=== PATIENT | female | born 1945 | race Caucasian/White ===

== ENCOUNTER → 2017-06-09 | Day surgery (SDC) | payer OTHER ==
[2017-05-12 11:47] VITALS: Ht 144.8 cm; Wt 52.3 kg
[~2017-06-09] VITALS: Ht 144.8 cm; Wt 52.3 kg
[~2017-06-09] MED LIST: 500ML BSS 0.3ML EPI 1:1000PF IRRIG ONE; ACETAMINOPHEN 325 MG TAB PO PRN; AMVISC PLUS 0.8ML SYRINGE INT OCU ONE; ASPCH81X PO; ATROPINE SULFATE 0.1 MG/ML 5ML SYR IV PRN; BSS FLUSH ONE; CHOL20007 PO; CLB/200 PO; CYAN100020 PO; EpHEDrine SULFATE INJ 50 MG/ML AMP IV PRN; EpINEphrine INJ 1MG/ML AMP 1 MG/ML AMP ONE; HYDR-3419 PO; LACTATED RINGER'S 1000ML 500 ML IV SCH; LIDOCAINE 3.5% OPH GEL PER APPLICATION CHARGE ONE; LIDOCAINE HCL 1% MPF 2 ML VIAL ONE; LOVA20TA4 PO; LTR510 PO; MAGN400T6 PO; MIDAZOLAM HCL 1 MG/ML 2ML VIAL ONE; OCUCOAT 1 ML SOLN IO ONE; POVIDONE-IODINE OP SOLN 30 ML BTL ONE; PROPARACAINE 0.5% OP SOLN PER DROP CHARGE OPL SCH; SIMV20TA2 PO; TOBRAMYCIN/DEXAMETHASONE OPH OINT PER APPLN CHARGE ONE
[2017-06-09] MEDS: PHENYLEPHRINE HCL 2.5% OP SOLN PER DROP CHARGE OPL SCH ×2 (09:52→09:57)
[2017-06-09] MEDS: TROPICAMIDE 1% OP SOLN PER DROP CHARGE OPL SCH ×2 (09:53→09:58)
[2017-06-09] MEDS: CYCLOPENTOLATE HCL 1% OP SOLN PER DROP CHARGE OPL SCH ×2 (09:54→09:59)
[2017-06-09] MEDS: KETOROLAC 0.5% OP SOLN PER DROP CHARGE OPL SCH ×2 (09:55→10:00)
[2017-06-09] MEDS: GATIFLOXACIN OP SOLN PER DROP CHARGE OPL SCH ×2 (09:56→10:00)
--- NOTE | 2017-06-09 10:22 | History & Physical Bridge - [place] ---
H&P Re-Evaluation Bridge Note: I have examined the patient, reviewed the History & Physical and in the interval since the performance of the History & Physical I have noted the following changes of clinical significance: No changes noted
--- NOTE | 2017-06-09 10:55 | Discharge Instructions-SurgCtr ---
Discharge Instructions Date of Service Jun 09, 2017. Visit Reason for Visit: Cataract Left Eye Discharge Discharge Diagnosis / Problem: cataract Discharge Goals Goal(s): Improve function Activity Recommendations Activity Limitations: per Instructions/Follow-up section Anesthesia . Post Anesthesia Instructions: If you have had General Anesthesia or IV Sedation: * Do not drive today. * Resume driving when surgeon permits. * Do not make important decisions or sign legal documents today. * Call surgeon for: 1. Temperature elevations greater than 101 degrees F. 2. Uncontrollable pain. 3. Excessive bleeding. 4. Persistent nausea and vomiting. 5. Medication intolerance (nausea, vomiting or rash). * For nausea and vomiting use only clear liquids such as: tea, soda, bouillon until nausea subsides, then gradually increase diet as tolerated. * If you have any concerns or questions, call your surgeon's office. If physician is unavailable and it is an emergency, call 911 or go to the nearest emergency room. . Instructions / Follow-Up Instructions / Follow-Up ACTIVITY RECOMMENDATIONS: * No strenuous lifting, jogging or running for 4 days * No swimming or yard work for 1 week. * Limited bending is permitted, such as putting on shoes. RETURN TO SCHOOL/WORK: No work until seen by physician in office. MEDICATIONS: Resume previous medications unless instructed otherwise by your surgeon. This includes eye drops for glaucoma. Zymaxid/Gatifloxacin (ochoa cap) - one drop every 2 hours until bedtime Nevanac/Ilevro/Prolensa/Ketorolac (donato cap) - one drop every 4 hours until bedtime Prednisolone/Durezol (white/pink cap, SHAKE WELL) - one drop every 2 hours until bedtime Starting tomorrow - all 3 drops every 4 hours until seen in the office Optive drops - as needed for discomfort SPECIAL CARE INSTRUCTIONS: * Wear eyeshield when sleeping, for four nights. * You may wear your own glasses or sunglasses while awake. * You may read or watch TV * You may shower and wash your face, but be gentle around the eye and pat dry. * Blurry vision and mild irritation are normal. * Call office if pain is more severe or vision becomes dark at . FOLLOW UP VISIT: Follow-up with Dr Moreira tomorrow. Diet Recommendations Home Diet: resume previous diet Procedures Procedures Performed: Left Cataract Phacoemulsification With Intraocular Lens Implant Pending Studies Studies pending at discharge: no Medical Emergencies . Who to Call and When: Medical Emergencies: If at any time you feel your situation is an emergency, please call 911 immediately. . Non-Emergent Contact Non-Emergency issues call your: Fruit Dryer . . "Provider Documentation" section prepared by Owen Moreira. .
--- NOTE | 2017-06-09 10:56 | [facility] Operative Report ---
Operative Report Date of Service Jun 09, 2017. Operative Report 1. PREOPERATIVE DIAGNOSIS: Cataract of the left eye. 2. POSTOPERATIVE DIAGNOSIS: Same. 3. PROCEDURE: Phacoemulsification with intraocular lens implantation of the left eye. SURGEON: Dr. Owen Moreira. ANESTHESIA: Topical Lidocaine gel, 1% Non- Preserved intracameral Lidocaine, and monitored intravenous sedation. INDICATIONS FOR THE PROCEDURE: The patient is a 72 - year-old female with a history of cataract of the left eye causing significant visual impairment. The details of the proposed procedure were explained to the patient who asked appropriate questions and following discussion of all risks, benefits and alternatives agreed to have the procedure done. 4. OPERATION AND FINDINGS: DESCRIPTION OF PROCEDURE: After informed consent was obtained, the patient was brought to the Operating Room at the [facility]. The patient was placed in a supine position and then the left eye was prepped and draped in the usual sterile fashion for intraocular surgery. A drop of topical Lidocaine gel was placed in the operative eye. A wire lid speculum was then placed in the fornices. A corneal paracentesis was then created temporally. The Non-Preserved Lidocaine was then instilled into the anterior chamber. The anterior chamber was then pressurized with viscoelastic. A 2.0 mm clear corneal incision was then created temporally. A cystotome was inserted into the anterior chamber and used to create a tear in the anterior lens capsule. This capsular tear was then used to create a small flap and the flap was dragged in a counterclockwise direction in order to create a continuous curvilinear capsulorrhexis. Hydrodissection was accomplished with balanced salt solution. Phacoemulsification of the lens nucleus was then performed in a standard [id number] technique. The phaco time was 26 seconds with an average power of 8 %. The remaining cortical material was removed using irrigation aspiration. The capsular bag was then filled with viscoelastic. A Bausch & Lomb MI60L +19.0 diopters lens was then loaded into the injector and injected into the capsular bag. The remaining viscoelastic was removed with the irrigation aspiration handpiece. The wound was hydrated and then checked and found to be watertight. The intraocular pressure was checked and found to be adequate. The wire lid speculum was removed and the patient's face was cleaned and dried. TobraDex ointment was placed in the inferior fornix. The patient was discharged to the Recovery Room having tolerated the procedure well. There were no complications. The patient will be seen tomorrow in the office for follow-up. I attest to the content of the Intraoperative Record and any orders documented therein. Any exceptions are noted below.
[2017-06-09 10:57] VITALS: TEMP 37.1
--- NOTE | 2017-06-09 11:03 | Anesthesia Progress Nt - [facility] ---
Anesthesia Post Op Note Date & Time Jun 09, 2017 at 11:03 Vital Signs Pain Intensity: 0 Vital Signs Past 12 Hours Date Time Temp Pulse Resp B/P (MAP) Pulse Ox O2 Delivery O2 Flow Rate FiO2 06/09/17 10:57 37.1 89 16 135/73 (93) 98 Room Air 06/09/17 09:37 36.8 81 20 170/71 (104) 94 Room Air Notes Mental Status: alert / awake / arousable, participated in evaluation Pt Amnestic to Procedure: Yes Nausea / Vomiting: adequately controlled Pain: adequately controlled Airway Patency, RR, SpO2: stable & adequate BP & HR: stable & adequate Hydration State: stable & adequate Anesthetic Complications: no major complications apparent
[2017-06-09 11:13] VITALS: BP 144/76; PULSE 87; O2SAT 97
== END | disposition home or self-care (01) ==
LOC: X.SURG 09:02
PROVIDERS: ATTEND Ophthalmology
DX: H26.9 Unspecified cataract (principal); I10 Essential (primary) hypertension; M19.90 Unspecified osteoarthritis, unspecified site; Z98.1 Arthrodesis status

== ENCOUNTER → 2017-07-09 | Day surgery (SDC) | payer OTHER ==
[2017-07-01 08:19] VITALS: Ht 144.8 cm; Wt 52.3 kg
[~2017-07-09] VITALS: Ht 144.8 cm; Wt 52.3 kg
[~2017-07-09] MED LIST changes: +LACTATED RINGER'S 1000ML 1,000 ML IV SCH; -LACTATED RINGER'S 1000ML 500 ML IV SCH; -LOVA20TA4 PO; -MAGN400T6 PO; -PROPARACAINE 0.5% OP SOLN PER DROP CHARGE OPL SCH; +PROPARACAINE 0.5% OP SOLN PER DROP CHARGE OPR SCH
[2017-07-09] MEDS: PHENYLEPHRINE HCL 2.5% OP SOLN PER DROP CHARGE OPR SCH ×2 (09:04→09:12)
[2017-07-09] MEDS: TROPICAMIDE 1% OP SOLN PER DROP CHARGE OPR SCH ×2 (09:05→09:13)
[2017-07-09] MEDS: CYCLOPENTOLATE HCL 1% OP SOLN PER DROP CHARGE OPR SCH ×2 (09:06→09:14)
[2017-07-09] MEDS: KETOROLAC 0.5% OP SOLN PER DROP CHARGE OPR SCH ×2 (09:07→09:15)
[2017-07-09] MEDS: GATIFLOXACIN OP SOLN PER DROP CHARGE OPR SCH ×2 (09:08→09:18)
--- NOTE | 2017-07-09 10:15 | Discharge Instructions-SurgCtr ---
Discharge Instructions Date of Service Jul 09, 2017. Visit Reason for Visit: Cataract Right Eye Discharge Discharge Diagnosis / Problem: cataract Discharge Goals Goal(s): Improve function Activity Recommendations Activity Limitations: per Instructions/Follow-up section Anesthesia . Post Anesthesia Instructions: If you have had General Anesthesia or IV Sedation: * Do not drive today. * Resume driving when surgeon permits. * Do not make important decisions or sign legal documents today. * Call surgeon for: 1. Temperature elevations greater than 101 degrees F. 2. Uncontrollable pain. 3. Excessive bleeding. 4. Persistent nausea and vomiting. 5. Medication intolerance (nausea, vomiting or rash). * For nausea and vomiting use only clear liquids such as: tea, soda, bouillon until nausea subsides, then gradually increase diet as tolerated. * If you have any concerns or questions, call your surgeon's office. If physician is unavailable and it is an emergency, call 911 or go to the nearest emergency room. . Instructions / Follow-Up Instructions / Follow-Up ACTIVITY RECOMMENDATIONS: * No strenuous lifting, jogging or running for 4 days * No swimming or yard work for 1 week. * Limited bending is permitted, such as putting on shoes. RETURN TO SCHOOL/WORK: No work until seen by physician in office. MEDICATIONS: Resume previous medications unless instructed otherwise by your surgeon. This includes eye drops for glaucoma. Zymaxid/Gatifloxacin (ochoa cap) - one drop every 2 hours until bedtime Nevanac/Ilevro/Prolensa/Ketorolac (donato cap) - one drop every 4 hours until bedtime Prednisolone/Durezol (white/pink cap, SHAKE WELL) - one drop every 2 hours until bedtime Starting tomorrow - all 3 drops every 4 hours until seen in the office Optive drops - as needed for discomfort SPECIAL CARE INSTRUCTIONS: * Wear eyeshield when sleeping, for four nights. * You may wear your own glasses or sunglasses while awake. * You may read or watch TV * You may shower and wash your face, but be gentle around the eye and pat dry. * Blurry vision and mild irritation are normal. * Call office if pain is more severe or vision becomes dark at . FOLLOW UP VISIT: Follow-up with Dr Moreira tomorrow. Diet Recommendations Home Diet: resume previous diet Procedures Procedures Performed: Right Cataract Phacoemulsification With Intraocular Lens Implant Pending Studies Studies pending at discharge: no Medical Emergencies . Who to Call and When: Medical Emergencies: If at any time you feel your situation is an emergency, please call 911 immediately. . Non-Emergent Contact Non-Emergency issues call your: Mirror Painter . . "Provider Documentation" section prepared by Owen Moreira. .
--- NOTE | 2017-07-09 10:16 | [facility] Operative Report ---
Operative Report Date of Service Jul 09, 2017. Operative Report 1. PREOPERATIVE DIAGNOSIS: Cataract of the right eye. 2. POSTOPERATIVE DIAGNOSIS: Same. 3. PROCEDURE: Phacoemulsification with intraocular lens implantation of the right eye. SURGEON: Dr. Owen Moreira. ANESTHESIA: Topical Lidocaine gel, 1% Non- Preserved intracameral Lidocaine, and monitored intravenous sedation. INDICATIONS FOR THE PROCEDURE: The patient is a 72 - year-old female with a history of cataract of the right eye causing significant visual impairment. The details of the proposed procedure were explained to the patient who asked appropriate questions and following discussion of all risks, benefits and alternatives agreed to have the procedure done. 4. OPERATION AND FINDINGS: DESCRIPTION OF PROCEDURE: After informed consent was obtained, the patient was brought to the Operating Room at the [facility]. The patient was placed in a supine position and then the right eye was prepped and draped in the usual sterile fashion for intraocular surgery. A drop of topical Lidocaine gel was placed in the operative eye. A wire lid speculum was then placed in the fornices. A corneal paracentesis was then created temporally. The Non-Preserved Lidocaine was then instilled into the anterior chamber. The anterior chamber was then pressurized with viscoelastic. A 2.0 mm clear corneal incision was then created temporally. A cystotome was inserted into the anterior chamber and used to create a tear in the anterior lens capsule. This capsular tear was then used to create a small flap and the flap was dragged in a counterclockwise direction in order to create a continuous curvilinear capsulorrhexis. Hydrodissection was accomplished with balanced salt solution. Phacoemulsification of the lens nucleus was then performed in a standard [id number] technique. The phaco time was 22 seconds with an average power of 12 %. The remaining cortical material was removed using irrigation aspiration. The capsular bag was then filled with viscoelastic. A Bausch & Lomb MI60L +17.5 diopters lens was then loaded into the injector and injected into the capsular bag. The remaining viscoelastic was removed with the irrigation aspiration handpiece. The wound was hydrated and then checked and found to be watertight. The intraocular pressure was checked and found to be adequate. The wire lid speculum was removed and the patient's face was cleaned and dried. TobraDex ointment was placed in the inferior fornix. The patient was discharged to the Recovery Room having tolerated the procedure well. There were no complications. The patient will be seen tomorrow in the office for follow-up. I attest to the content of the Intraoperative Record and any orders documented therein. Any exceptions are noted below.
--- NOTE | 2017-07-09 10:30 | Anesthesia Progress Nt - [facility] ---
Anesthesia Post Op Note Date & Time Jul 09, 2017 at 10:30 Vital Signs Pain Intensity: 0 Vital Signs Past 12 Hours Date Time Temp Pulse Resp B/P (MAP) Pulse Ox O2 Delivery O2 Flow Rate FiO2 07/09/17 08:57 36.9 84 16 120/67 (84) 96 Room Air Notes Mental Status: alert / awake / arousable, participated in evaluation Pt Amnestic to Procedure: Yes Nausea / Vomiting: adequately controlled Pain: adequately controlled Airway Patency, RR, SpO2: stable & adequate BP & HR: stable & adequate Hydration State: stable & adequate Anesthetic Complications: no major complications apparent
[2017-07-09 10:39] VITALS: BP 131/69; PULSE 82; O2SAT 97
== END | disposition home or self-care (01) ==
LOC: X.SURG 08:46
PROVIDERS: ATTEND Ophthalmology
DX: H26.9 Unspecified cataract (principal); I10 Essential (primary) hypertension

== ENCOUNTER 2023-04-29 09:02 | Inpatient (IN) ==
--- NOTE | 2023-04-16 13:31 | PAT Medication Instructions ---
Medication Instructions Date of Service April 16, 2023 Home Medications Medication Instructions Recorded clopidogrel 75 mg tablet 75 mg PO DAILY #30 tabs 06/17/22 albuterol sulfate 90 mcg/actuation aerosol inhaler 2 puff inhalation Q6H PRN sob celecoxib 200 mg capsule (Celebrex) 200 mg PO QPM cholecalciferol (vitamin D3) 25 mcg (1,000 unit) capsule 2,000 unit PO QPM epinephrine 0.3 mg/0.3 mL injection, auto-injector 0.3 mg IM Q4H PRN Allergic R eaction famotidine 20 mg tablet 20 mg PO QPM furosemide 20 mg tablet 20 mg PO DAILY PRN Edema lidocaine 5 % topical patch 1 patch topical DAILY PRN pain potassium chloride 10 mEq capsule,extended release 10 meq PO QPM PRN Edema clopidogrel 75 mg tablet 75 mg PO DAILY amlodipine 10 mg-benazepril 20 mg capsule 1 cap PO QPM hydrocodone 5 mg-acetaminophen 325 mg tablet 1 tab PO QID PRN Pain tiotropium bromide 18 mcg capsule with inhalation device (Spiriva with HandiHaler) 1 cap inhalation QAM Continue as directed lidocaine 5 % topical patch 1 patch topical DAILY PRN pain (avoid placement near surgery site prior to surgery) epinephrine 0.3 mg/0.3 mL injection, auto-injector 0.3 mg IM Q4H PRN Allergic Reaction (if needed) ASK your surgeon for instructions celecoxib 200 mg capsule (Celebrex) 200 mg PO QPM ASK your prescriber and surgeon clopidogrel 75 mg tablet 75 mg PO DAILY DO NOT take the morning of surgery furosemide 20 mg tablet 20 mg PO DAILY PRN Edema Take morning of surgery With a small sip of water, OTHERWISE NOTHING TO EAT OR DRINK AFTER MIDNIGHT: albuterol sulfate 90 mcg/actuation aerosol inhaler 2 puff inhalation Q6H PRN sob (use if needed; please bring rescue inhaler with you to hospital day of surgery if possible) hydrocodone 5 mg-acetaminophen 325 mg tablet 1 tab PO QID PRN Pain (if needed) tiotropium bromide 18 mcg capsule with inhalation device (Spiriva with HandiHaler) 1 cap inhalation QAM Take evening before surgery albuterol sulfate 90 mcg/actuation aerosol inhaler 2 puff inhalation Q6H PRN sob (if needed) famotidine 20 mg tablet 20 mg PO QPM furosemide 20 mg tablet 20 mg PO DAILY PRN Edema (if needed) potassium chloride 10 mEq capsule,extended release 10 meq PO QPM PRN Edema (if needed) amlodipine 10 mg-benazepril 20 mg capsule 1 cap PO QPM hydrocodone 5 mg-acetaminophen 325 mg tablet 1 tab PO QID PRN Pain (if needed) Other Notes If you have any questions please call us at [phone] or [phone] or [phone] or [phone]
--- NOTE | 2023-04-17 11:17 | Anesthesiology Consultation ---
Date of Service April 17, 2023 Assessment & Plan (1) Encounter for pre-operative examination: - awaiting upcoming 04/22 [place] cardiology pre-op evaluation. 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 - hydrocodone-acetaminophen reaction: generalized itching. She states that title lawyer advised she take Claritin 30 minutes prior to taking Vicodin which she has been doing. Nora with surgeon's office made aware of this and reported hallucinations with oxycodone. Patient was instructed to take Claritin day of surgery if she also takes Vicodin as per title lawyer. Chart Review Chart Review: Pending: Refer to Additional Notes / Consult section and Patient seen in Pre Admission Testing Teaching & Discussion Pre-Anesthesia Teaching/Discussion Notes: Instructed NPO after midnight before surgery, except medications with 15 cc of water. Medication instructions provided according to the PAT guidelines. History Surgery Operation Date: 04/29/23 08:45 Proposed Procedures p L3-L4 Decompression, L3-L5 Fusion, L4-L5 Hardware Removal, Spinal Cord Monitoring - Schuyler Guzman, Height/Weight Height: 4 ft 9 in Weight: 55.8 kg Allergies Allergy/AdvReac Type Severity Reaction Status Date / Time aspirin Allergy Severe Anaphylaxis Verified 04/16/23 12:24 cephalexin Allergy Severe HIVES AND Verified 04/16/23 12:24 ITCHING, TONGUE SWELLING, SOB hydrocodone Allergy Intermediate itching Verified 04/17/23 11:30 prednisolone Allergy Unknown LIP Verified 04/16/23 12:24 SWELLING amoxicillin AdvReac Unknown DIARRHEA Verified 04/16/23 12:24 oxycodone AdvReac Intermediate hallucinati Uncoded 04/17/23 11:30 ons Medications Home Medications Medication Instructions Recorded Confirmed Last Taken albuterol sulfate 90 mcg/actuation 2 puff inhalation Q6H PRN sob 12/02/21 04/16/23 Unknown aerosol inhaler celecoxib 200 mg capsule (Celebrex) 200 mg PO QPM 12/02/21 04/16/23 Unknown cholecalciferol (vitamin D3) 25 2,000 unit PO QPM 12/02/21 04/16/23 Unknown mcg (1,000 unit) capsule epinephrine 0.3 mg/0.3 mL 0.3 mg IM Q4H PRN Allergic Reaction 12/02/21 04/16/23 Unknown injection, auto-injector famotidine 20 mg tablet 20 mg PO QPM 12/02/21 04/16/23 Unknown furosemide 20 mg tablet 20 mg PO DAILY PRN Edema 03/27/22 04/16/23 Unknown lidocaine 5 % topical patch 1 patch topical DAILY PRN pain 03/27/22 04/16/23 Unknown potassium chloride 10 mEq 10 meq PO QPM PRN Edema 03/27/22 04/16/23 Unknown capsule,extended release amlodipine 10 mg-benazepril 20 mg 1 cap PO QPM 04/16/23 04/16/23 Unknown capsule hydrocodone 5 mg-acetaminophen 325 1 tab PO QID PRN Pain 04/16/23 04/16/23 Unknown mg tablet tiotropium bromide 18 mcg capsule 1 cap inhalation QAM 04/16/23 04/16/23 Unknown with inhalation device (Spiriva with HandiHaler) loratadine 10 mg tablet (Claritin) 10 mg PO DAILY PRN Allergic 04/17/23 04/17/23 Unknown Symptoms Past Medical History Medical History (Updated 04/17/23 @ 11:35 by Kimmy Marrero PA-C) Bursitis of right hip hip injection Carotid artery disease s/p L carotid endarterectomy 1992; < 50% stenosis ICAs bilat Chronic back pain Chronic obstructive pulmonary disease mild - well controlled, stable per pt; last albuterol inhaler use daily Degenerative disc disease Dyslipidemia GERD (gastroesophageal reflux disease) rare, stable per pt History of Mohs micrographic surgery for skin cancer Hx of basal cell carcinoma R forehead s/p Mohs Hypertension controlled, stable per pt Kidney stones hx - no surgery Multiple thyroid nodules Peripheral neuropathy right foot Spinal stenosis Stroke at age 48, 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 no current paralysis. doing well. patient to be on Plavix daily, stopped beginning of March 2023 on her own d/t severe diarrhea. Patient denies h/o seizures, heart attack, heart failure, DM, blood clots or blood transfusions. Exercise / Class Metabolic Activity III < 4 Walking/Shop/Light housework (denies chest discomfort or shortness of breath with usual activities) Past Family History Family History Mother Diabetes Arthritis Dementia Hypothyroidism Father Diabetes Stroke Brother Congestive heart failure Other No family history of adverse response to anesthesia Past Surgical History Surgical History (Updated 04/17/23 @ 11:34 by Kimmy Marrero PA-C) History of carotid endarterectomy L, ~1992 (age 48) at [facility] History of cataract surgery bilateral History of cholecystectomy History of dilatation and curettage History of tonsillectomy S/P lumbar fusion S/P JANEEN (total abdominal hysterectomy) Past Anesthesia History No Hx of Anesthesia Complications and No Family Hx of Anesthesia Complications History of PONV No Hx of PONV and No Hx of Motion Sickness Social History Smoking Status: Current every day smoker (advised) tobacco type: cigarettes Smoking cigarettes per day: 20 Do You Dip or Chew Tobacco: No Hx Alcohol Use: No Hx Substance Use: No substance use type: does not use Review of Systems Patient denies chest pain, shortness of breath, dyspnea on exertion, snoring, witnessed apneas, fever, chills, or palpitations. Physical Exam Vital Signs Vitals BP 141/77 P 87 TEMP 98.4 SP02 94% on RA RESP 17 Physical Full cervical extension range of motion without pain TMD 3.5 finger breadths Mallampati Score 3 Dentition: intact, denies chipped or loose teeth, caps/crowns, implants or bridges Lungs: normal respiratory effort. Good air movement, clear throughout to auscultation, no adventitious breath sounds Cardiac: regular rate and rhythm, no murmurs noted Carotid arteries: negative bruit bilat Lab Results Anesthesia Preop Results Results Anesthesia Widget: PT 10.3 Seconds (9.0-12.0) 04/17/23 PTT 26.7 Seconds (21.0-31.0) 04/17/23 INR 0.9 (0.9-1.1) 04/17/23 Urine Color Yellow 04/17/23 Urine Appearance Clear (Clear) 04/17/23 Urine pH 6.0 (4.5-7.5) 04/17/23 Urine Specific [place] 1.007 (1.000-1.030) 04/17/23 Urine Protein Negative (Negative) 04/17/23 Urine Glucose (UA) Negative (Negative) 04/17/23 Urine Ketones Negative (Negative) 04/17/23 Urine Blood Negative (Negative) 04/17/23 Urine Nitrite Negative (Negative) 04/17/23 Urine Bilirubin Negative (Negative) 04/17/23 Urine Urobilinogen Negative (Negative) 04/17/23 Urine Leukocyte Esterase 2+ (Negative) H 04/17/23 Urine WBC (Auto) 1-5 /hpf (0-5) 04/17/23 Urine RBC (Auto) 0-4 /hpf (0-4) 04/17/23 Urine Hyaline Casts (Auto) 0 /lpf (0-5) 04/17/23 Urine Epithelial Cells (Auto) 10-20 /lpf (0-5) H 04/17/23 Urine Bacteria (Auto) Negative (Negative) 04/17/23 Blood Type A Positive 04/17/23 Antibody Screen NEGATIVE 04/17/23 Testing Laboratory Results 03/11/2023 WBC: 10.9 H/H: 16/53 PLATELETS: 319 SODIUM: 144 POTASSIUM: 4.7 CHLORIDE: 109 CO2: 24 BUN: 27 CREATININE: 1.1 GLUCOSE: 93 Electrocardiogram Date: 04/17/23 NSR, rate 94 bpm Possible LA enlargement Chest X-Ray Date: 04/17/23 No acute cardiopulmonary findings Echocardiogram Date: 04/24/22 EF 60-65% No regional wall motion abnormalities Mild tricuspid regurgitation Other Testing Carotid doppler 04/24/22 < 50% stenosis R ICA 30-50% stenosis L ICA COVID-19 Risk Screen Screening Information COVID-19 Screen Date: 04/17/23 Exposure 21 Days Family/Household +COVID Last 21 Days: No Exposure 10 Days Any COVID Exposure Last 10 Days: No Symptoms Last 10 Days Experienced COVID Sx Last 10 Days: No + COVID 0-90 Days COVID + in Last 0-90 Days: No
[~2023-04-29 09:02] MED LIST changes: -500ML BSS 0.3ML EPI 1:1000PF IRRIG ONE; -ACETAMINOPHEN 325 MG TAB PO PRN; +ACETAMINOPHEN 500 MG TAB PO SCH; +ALLERGY Noted to ORDERED Medication SCH; -AMVISC PLUS 0.8ML SYRINGE INT OCU ONE; -ASPCH81X PO; -ATROPINE SULFATE 0.1 MG/ML 5ML SYR IV PRN; -BSS FLUSH ONE; -CHOL20007 PO; -CLB/200 PO; +CLINDAMYCIN/D5W 900 MG/50 ML BAG IV SCH; -CYAN100020 PO; +DEXAMETHASONE SOD INJ 4 MG/ML VIAL ONE; -EpHEDrine SULFATE INJ 50 MG/ML AMP IV PRN; -EpINEphrine INJ 1MG/ML AMP 1 MG/ML AMP ONE; +GABAPENTIN 300 MG CAP PO SCH; -HYDR-3419 PO; -LACTATED RINGER'S 1000ML 1,000 ML IV SCH; +LIDOCAINE 2% 2 ML VIAL/AMP(20MG/ML) INFIL ONE; -LIDOCAINE 3.5% OPH GEL PER APPLICATION CHARGE ONE; -LIDOCAINE HCL 1% MPF 2 ML VIAL ONE; +LR 15ML/HR IV SCH; +LR 60ML/HR IV SCH; -LTR510 PO; -OCUCOAT 1 ML SOLN IO ONE; +ONDANSETRON INJ 2 MG/ML 2 ML VIAL ONE; -POVIDONE-IODINE OP SOLN 30 ML BTL ONE; -PROPARACAINE 0.5% OP SOLN PER DROP CHARGE OPR SCH; +PROPOFOL IV EMULSION 10 MG/ML 20 ML VIAL IV ONE; +ROCURONIUM BROMIDE 10 MG/ML 5 ML VIAL IV ONE; -SIMV20TA2 PO; -TOBRAMYCIN/DEXAMETHASONE OPH OINT PER APPLN CHARGE ONE; +fentaNYL citrate PF 100 MCG/2 ML VIAL ONE
[2023-04-29] MEDS ORDERED: ATROPINE SULFATE 0.1 MG/ML 10ML SYR IV PRN (09:13)
[2023-04-29] MEDS ORDERED: ONDANSETRON INJ 2 MG/ML 2 ML VIAL IV PRN ×2 (09:13→15:20)
[2023-04-29] MEDS ORDERED: ePHEDrine sulfate 50 MG/ML AMP IV PRN (09:13)
[2023-04-29] MEDS ORDERED: SUGAMMADEX SODIUM 200 MG/2 ML VIAL IV ONE (11:37)
--- NOTE | 2023-04-29 11:41 | History & Physical Bridge Note ---
Date of Service April 29, 2023 History & Physical Bridge Note I have examined the patient, reviewed the History & Physical and in the interval since the performance of the History & Physical I have noted the following changes of clinical significance: no changes noted
--- NOTE | 2023-04-29 11:44 | History & Physical Report ---
Date of Service April 29, 2023 Assessment & Plan (1) Neurogenic claudication due to lumbar spinal stenosis: Plan: L3-L4 decompression, L3-L5 fusion, L4-L5 hardware removal History of Present Illness Chief Complaint: back and leg pain Primary Care Provider: Jag Denny This is a 78-year-old female who presents with chronic persistent back and leg pain after failing course of nonoperative care she is here for surgical intervention. Allergies Allergy/AdvReac Type Severity Reaction Status Date / Time aspirin Allergy Severe Anaphylaxis Verified 04/29/23 09:29 cephalexin Allergy Severe HIVES AND Verified 04/29/23 09:29 ITCHING, TONGUE SWELLING, SOB hydrocodone Allergy Intermediate itching Verified 04/29/23 09:29 prednisolone Allergy Unknown LIP Verified 04/29/23 09:29 SWELLING gabapentin AdvReac Intermediate Diarrhea Verified 04/29/23 10:15 amoxicillin AdvReac Unknown DIARRHEA Verified 04/29/23 09:29 oxycodone AdvReac Intermediate hallucinati Uncoded 04/29/23 09:29 ons Home Medications Medication Instructions Recorded Confirmed Type albuterol sulfate 90 mcg/actuation 2 puff inhalation Q6H PRN sob 12/02/21 07/0 03/17 History aerosol inhaler celecoxib 200 mg capsule (Celebrex) 200 mg PO QPM 12/02/21 04/29/23 History epinephrine 0.3 mg/0.3 mL 0.3 mg IM Q4H PRN Allergic Reaction 12/02/21 04/29/23 History injection, auto-injector famotidine 20 mg tablet 20 mg PO QPM 12/02/21 04/29/23 History furosemide 20 mg tablet 20 mg PO DAILY PRN Edema 03/27/22 04/29/23 History lidocaine 5 % topical patch 1 patch topical DAILY PRN pain 03/27/22 04/29/23 History potassium chloride 10 mEq 10 meq PO QPM PRN Edema 03/27/22 04/29/23 History capsule,extended release amlodipine 10 mg-benazepril 20 mg 1 cap PO QPM 04/16/23 04/29/23 History capsule (Lotrel) hydrocodone 5 mg-acetaminophen 325 1 tab PO QID PRN Pain 04/16/23 04/29/23 History mg tablet tiotropium bromide 18 mcg capsule 1 cap inhalation QAM 04/16/23 04/29/23 History with inhalation device (Spiriva with HandiHaler) loratadine 10 mg tablet (Claritin) 10 mg PO DAILY PRN Allergic 04/17/23 04/29/23 History Symptoms cholecalciferol (vitamin D3) 25 1,000 unit PO QPM 04/22/23 04/29/23 History mcg (1,000 unit) capsule prasugrel 10 mg tablet (Effient) 10 mg PO DAILY 04/29/23 04/29/23 History Past Med/Surg History Medical History (Updated 04/29/23 @ 11:44 by Schuyler Guzman, DO) Bursitis of right hip hip injection Carotid artery disease s/p L carotid endarterectomy 1992; < 50% stenosis ICAs bilat Chronic back pain Chronic obstructive pulmonary disease mild - well controlled, stable per pt; last albuterol inhaler use daily Degenerative disc disease Dyslipidemia GERD (gastroesophageal reflux disease) rare, stable per pt History of Mohs micrographic surgery for skin cancer Hx of basal cell carcinoma R forehead s/p Mohs Hypertension controlled, stable per pt Kidney stones hx - no surgery Multiple thyroid nodules Peripheral neuropathy right foot Spinal stenosis Stroke at age 48, 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 no current paralysis. doing well. patient to be on Plavix daily, stopped beginning of March 2023 on her own d/t severe diarrhea. Surgical History History of carotid endarterectomy L, ~1992 (age 48) at [facility] History of cataract surgery bilateral History of cholecystectomy History of dilatation and curettage History of tonsillectomy S/P lumbar fusion S/P JANEEN (total abdominal hysterectomy) Family History Mother Diabetes Arthritis Dementia Hypothyroidism Father Diabetes Stroke Brother Congestive heart failure Other No family history of adverse response to anesthesia Social History Smoking Status: Current every day smoker Cigarettes Per Day: 20; Second Hand Exposure: Yes; Do You Dip or Chew Tobacco: No; Tobacco Cessation Education Requested by Patient: No Hx Alcohol Use: No Hx Substance Use: No Preferred Language: [place]an Communication Ability: Effective Wellhead Pumper Required: No Beliefs That Will Affect Care: None Current Living Situation: Spouse Other Information That Helps Us Care for You: No Feels Safe at Home: Yes Safety Concerns: Feels Safe At This Time Assistive Devices: Denture - Upper, Denture - Lower and Glasses Physical Exam Physical Exam: Patient is alert and oriented Heart regular rhythm Lungs clear Results & Data Results & Data Vital Signs (Past 12 Hours) Vital Signs Temp Pulse Resp BP Pulse Ox O2 Del Method 04/29/23 09:41 Room Air 04/29/23 09:41 36.7 C 95 H 20 156/74 H 92 Room Air
[2023-04-29] MEDS ORDERED: KETAMINE 50 MG/5 ML SYRINGE ONE (11:54)
[2023-04-29] MEDS ORDERED: ceFAZolin 330 MG/ML 1 GM VIAL ONE (11:58)
[2023-04-29] MEDS ORDERED: BUPIVACAINE/EPINEPHRINE 0.25% 1:200,000 30 ML VIAL ONE (11:58)
[2023-04-29] MEDS ORDERED: FLOSEAL HEMOSTATIC MATRIX 10ML TOP ONE (12:48)
--- NOTE | 2023-04-29 13:30 | Operative Report ---
Post Operative Report Pre & Post Diagnosis Operation Date: 04/29/23 11:05 Pre-Op Diagnosis: Neurogenic claudication due to lumbar spinal stenosis Post-Op Diagnosis: Neurogenic claudication due to lumbar spinal stenosis I identified the patient and participated in the time-out.: Yes Procedure Operation Date: 04/29/23 11:05 Actual Procedures #1 removal of posterior instrumentation L4-5 per #2 exploration of fusion L4-5 #3 lumbar decompression bilaterally facetectomies and foraminotomies L2-L3 L3- L4. #4 posterior spinal fusion L3-L4. #5 placement of posterior instrumentation L3-L4. #6 placement of body fusion L3-4. #7 placement of Spira 11 x 26 mm at L3-L4. #8 placement locally harvested morselized autograft and posterior gutters. #9 placement of I factor amount of the test interbody space and posterior gutters. Surgeon Schuyler Guzman DO Roof Slater Fadumo Walden Estimated Blood Loss 50 Findings Consistent with Post-Op Diagnosis Specimens None Indications This is a 78-year-old female presents above-mentioned diagnosis after failing course of nonoperative care she is here for surgical invention. Description of Procedure Patient was met with the identified informed consent obtained. Patient was then taken to the operative suite underwent a patient placed in a prone position [facility] Maulik frame. All bony promises well-padded eyes inspected to ensure no external pressure placed wound. This point the lumbar spine was prepped and draped in a sterile fashion. Sharp dissection with the assistance of Bovie cautery to form down to and exposing the lamina and transverse processes of L3 and instrumentation L4-5 bilaterally. And then proceeded with the hardware bilaterally explore the fusion mass noted to be mature and intact. Then performed complete laminectomy of L3 partial laminectomy of L2 including bilaterally facetectomies and foraminotomies addressing severe spinal stenosis. Pedicle screws were then placed at L3-L4 bilaterally with assistance of fluoroscopy and the properly sized faviola placed. By way of a trans foraminal approach and right complete discectomy of L3-L4 was performed endplates curetted to subcortical bleeding bone and 11 x 26 mm Spira cage with I factor tapped in position. The rods then locked in final position bilaterally. Transverse processes of L3-L4 burred to subcortical bleeding bone. I factor amount of the test and locally harvested morselized autograft was placed in the posterior gutters. 15 round JELENA drain inserted. The incision was then closed with 1 Vicryl the fascia 2-0 Vicryl subcutaneously and 4 Monocryl for final skin closure. Steri-Strip sterile dressing placed. Patient awakened taken to PACU in stable condition. Please note spinal cord monitoring visualized at the procedure no changes noted. Lastly Fadumo Walden was present at the entire surgeon while the patient positioning complex portion of the surgery and final skin closure. I attest to the content of the Intraoperative Record and any orders documented therein. Any exceptions are noted below.
[2023-04-29] MEDS: fentaNYL citrate PF 100 MCG/2 ML VIAL IV PRN ×4 (13:43→13:58)
[2023-04-29] MEDS: HYDROmorphone INJ 1 MG/ML SYRINGE IV PRN ×6 (14:03→14:31)
--- NOTE | 2023-04-29 14:59 | Anesthesiology Progress Note ---
Date of Service April 29, 2023 Anesthesia Post Procedure Vital Signs Vital Signs: Temp Pulse Pulse Resp BP Pulse Ox O2 Del Method 04/29/23 14:45 88 12 109/57 L 94 Nasal Cannula 04/29/23 14:35 90 14 101/63 94 Nasal Cannula 04/29/23 14:25 97 H 12 111/59 L 97 Nasal Cannula 04/29/23 14:15 99 H 16 116/68 97 Nasal Cannula 04/29/23 14:05 100 H 18 126/70 97 Oxymask 04/29/23 13:55 93 H 20 121/71 97 Oxymask 04/29/23 13:45 95 H 14 128/64 99 Oxymask 04/29/23 13:37 36.4 C L 96 H 16 122/66 99 Oxymask 04/29/23 09:41 Room Air 04/29/23 09:41 36.7 C 95 H 20 156/74 H 92 Room Air O2 Flow Rate 04/29/23 14:45 2 04/29/23 14:35 2 04/29/23 14:25 2 04/29/23 14:15 2 04/29/23 14:05 4 04/29/23 13:55 4 04/29/23 13:45 6 04/29/23 13:37 6 04/29/23 09:41 04/29/23 09:41 Pain Intensity Bilateral Lower Back: Pain Intensity: 5 Transfer of Care Handoff Completed per policy Notes Mental Status: alert / awake / arousable Patient Amnestic to Procedure: Yes Nausea / Vomiting: adequately controlled Pain: adequately controlled Airway Patency, RR, SpO2: stable & adequate BP & HR: stable & adequate Hydration State: stable & adequate Anesthetic Complications: no major complications apparent
--- NOTE | 2023-04-29 15:14 | Fluoroscopy Report ---
FL lumbar spine 2-3V CLINICAL HISTORY: L3-L4 DECOMPRESSION L3-L5 FUSION L4-L5 HW REMOVAL COMPARISON STUDY: Lumbar spine radiographs April 27, 2013. FLUOROSCOPY TIME: 10 seconds. Ka, r: 5.56 mGy FLUOROSCOPIC IMAGES: 2 FINDINGS: L4 and L5 pedicle screws were removed. Previous L4-L5 discectomy is noted. There is interva l L3-L4 discectomy with interbody spacer placement. Posterior decompression is noted. Bilateral pedic le screws at the L3 and L4 levels are present. Hardware is intact. A linear radiodensity projecting p osterior to the L3-L4 disc space is likely postsurgical. IMPRESSION: Fluoroscopy provided during hardware removal and interval L3-L4 discectomy, posterior de compression and bilateral pedicle screw fusion. ACT 112: Negative or not required by law. Electronically signed by: Carlos Sy M.D. 04/29/2023 3:12 PM
[2023-04-29] MEDS ORDERED: PROMETHAZINE HCL 12.5 MG in SODIUM CHLORIDE 0.9% 50 ML IV PRN (15:20)
[2023-04-29] MEDS ORDERED: METOCLOPRAMIDE HCL INJ 5 MG/ML 2 ML VIAL IV PRN (15:20)
[2023-04-29] MEDS ORDERED: ONDANSETRON 4 MG OD TAB PO PRN (15:20)
[2023-04-29] MEDS: SODIUM CHLORIDE 0.9% 1000ML 1,000 ML IV SCH (15:20)
[2023-04-29] MEDS ORDERED: ALBUTEROL HFA 8 GM INHALER INH PRN (15:20)
[2023-04-29] MEDS ORDERED: traMADol HCL 50 MG TABLET PO PRN (15:20)
[2023-04-29] MEDS ORDERED: ACETAMINOPHEN 1,000 MG/100 ML VIAL IV PRN (15:20)
[2023-04-29] MEDS ORDERED: HYDROmorphone INJ 1 MG/ML SYRINGE IV PRN (15:20)
[2023-04-29] MEDS ORDERED: DO NOT ADMINISTER FLU VACCINE PRN (15:20)
[2023-04-29] MEDS ORDERED: ALUMINUM/MAGNESIUM SUSP 30 ML UDC PO PRN (15:20)
[2023-04-29] MEDS ORDERED: FAMOTIDINE 20 MG TAB PO PRN (15:20)
[2023-04-29] MEDS ORDERED: NALOXONE HCL 0.4 MG/1 ML VIAL/CARP IV PRN (15:20)
[2023-04-29] MEDS ORDERED: diphenhydrAMINE Capsule 25 MG CAP PO PRN (15:20)
[2023-04-29] MEDS ORDERED: ACETAMINOPHEN 500 MG TAB PO PRN (15:20)
[2023-04-29] MEDS ORDERED: LORazepam 2 MG/1 ML VIAL IV PRN (15:20)
[2023-04-29] MEDS ORDERED: DO NOT ADMINISTER PNEUMOCOCCAL VACCINE PRN (15:20)
[2023-04-29] MEDS ORDERED: SOD PHOSPHATE/SOD BIPHOSPHATE ENEMA 132 ML BTL PR PRN (15:20)
[2023-04-29] MEDS ORDERED: HYDROmorphone INJ 0.5 MG/0.5 ML SYR IV PRN (15:20)
[2023-04-29] MEDS ORDERED: hydrOXYzine HCl 25 MG TAB PO PRN (15:20)
[2023-04-29] MEDS ORDERED: MAGNESIUM HYDROXIDE SUSP 30 ML UDC PO PRN (15:20)
[2023-04-29] MEDS ORDERED: LORazepam 0.5 MG TAB PO PRN (15:20)
[2023-04-29] MEDS ORDERED: POTASSIUM CHLORIDE 10 MEQ TABCR PO PRN (15:20)
[2023-04-29] MEDS ORDERED: bisacodyL 10 MG SUPP PR PRN (15:20)
[2023-04-29] MEDS ORDERED: EPINEPHrine INJ 1 MG/ML AMP IM PRN (15:41)
--- NOTE | 2023-04-29 15:48 | Consultation ---
Date of Consultation April 29, 2023 Assessment & Plan (1) Neurogenic claudication due to lumbar spinal stenosis: (2) Hypertension: (3) Dyslipidemia: (4) Carotid artery disease: Plan This is a 78-year-old female who has a significant past medical history of CVA, HTN, HLD, carotid artery disease status post left carotid endarterectomy, reported anaphylaxis to aspirin, DDD and tobacco abuse who presents for elective lumbar procedure by Dr. Guzman. Neurogenic claudication due to lumbar spinal stenosis S/L L3-[address] Guzman, POD #0 EBL: 50ml pain/wound management per ortho activity and therapy as prescribed by ortho encourage incentive spirometry I do not see pre op hgb so will need to follow cbc closely HTN bp soft 109/57 so will hold amlodipine enalapril for now re evaluate in a.m. to resume Hx of CVA not on ASA/Statin 2/2 to allergy/intolerance previously on plavix but stopped per cards note to start prasugrel post surgery once cleared by ortho HLD did not tolerate tx with statin, zetia or repatha due to myalgia DVT ppx: SCDS FULL CODE PCP: Eduin Pt was seen and examined in collaboration with Dr. Rosenberg, please see addendum A total of 50 was spent coordinating, documenting, and providing care for this patient excluding time spent in the performance of separately billed services. This included personally viewing all current laboratories and imaging studies, medication reconciliation, outpatient chart review, and discussion with specialists. Supervising Physician Co-Signing Physician Notes Patient is a 78-year-old female with history of CVA, hypertension, hyperlipidemia and other medical problems was consulted for postop medical management after having lumbar surgery by Dr. Guzman. Patient is doing well postoperatively. She denies any significant pain at surgical site. Also denies any chest pain, dyspnea, dizziness, nausea, vomiting. Her blood pressure is relatively low postoperatively. Physical Exam: Vitals signs as noted above General Appearance:Moderately built and nourished, no apparent distress, Elderly Head: normocephalic, Atraumatic Eyes: normal inspection, EOMI Neck: supple, Trachea midline Respiratory/Chest: Normal breath sounds, CTA, No accessory muscle use Cardiovascular: S1, S2, No murmur Abdomen/GI:Soft, Non tender, Bowel sounds present Back: Surgical site in dressing,+ drain Extremities/Musculoskeletal:normal inspection, no edema Neurologic/Psych:AAOX3, grossly no focal neurological deficits Skin: normal color, warm Neurogenic claudication due to lumbar spinal stenosis S/P lumbar decompression, fusion surgery by Dr. Guzman. Hypertension Hyperlipidemia H/O CVA Monitor for postop anemia Bowel regimen to prevent constipation Incentive spirometer We will hold antihypertensives given low BP Plan to be started on pressor grill postsurgery once cleared by orthopedics for CVA I personally reviewed the record. Patient is interviewed and examined at bedside. Patient's care is coordinated with Marisela Aburto PA-C. Please refer to the documentation above for details of patient's presentation and for dis cussion of other issues. History of Present Illness Requesting Physician: Dr. Guzman Reason for Consultation: Postop medical management Attending Physician: Schuyler Guzman, DO History of Present Illness This is a 78-year-old female who has a significant past medical history of CVA, HTN, HLD, carotid artery disease status post left carotid endarterectomy, reported anaphylaxis to aspirin, DDD and tobacco abuse who presents for elective lumbar procedure by Dr. Guzman. Patient did undergo cardiac clearance on 04/21/2023. Previous EKG showed normal sinus rhythm with no acute ischemic change. It was felt blood pressure was under good control and she was medically optimized for surgery. In regards the patient's hyperlipidemia she has been intolerant to most statins, Zetia and also tried Repatha. She has anaphylactic reaction to ASA. She was then placed on Plavix for history of CVA although per cardiology note patient had stopped secondary to diarrhea and leakage of stool. It was discussed patient to start prasugrel postsurgery when cleared from orthopedic spine. Today she underwent L3-L4 decompression with L3-L5 fusion and L4-5 Hardware removal. Overall she feels good after surgery. "I finally feel like I am waking up." She is enjoying a blue popsicle. She denies f/c/s, chest pain, sob, n/v/d, abd pain, numbness or tingling. Her appetite is starting to return. Her is at bedside. Allergies Allergy/AdvReac Type Severity Reaction Status Date / Time aspirin Allergy Severe Anaphylaxis Verified 04/29/23 09:29 cephalexin Allergy Severe HIVES AND Verified 04/29/23 09:29 ITCHING, TONGUE SWELLING, SOB hydrocodone Allergy Intermediate itching Verified 04/29/23 09:29 prednisolone Allergy Unknown LIP Verified 04/29/23 09:29 SWELLING gabapentin AdvReac Intermediate Diarrhea Verified 04/29/23 10:15 amoxicillin AdvReac Unknown DIARRHEA Verified 04/29/23 09:29 oxycodone AdvReac Intermediate hallucinati Uncoded 04/29/23 09:29 ons Home Medications Medication Instructions Recorded Confirmed Type albuterol sulfate 90 mcg/actuation 2 puff inhalation Q6H PRN sob 12/02/21 04/29/23 History aerosol inhaler celecoxib 200 mg capsule (Celebrex) 200 mg PO QPM 12/02/21 04/29/23 History epinephrine 0.3 mg/0.3 mL 0.3 mg IM Q4H PRN Allergic Reaction 12/02/21 04/29/23 History injection, auto-injector famotidine 20 mg tablet 20 mg PO QPM 12/02/21 04/29/23 History furosemide 20 mg tablet 20 mg PO DAILY PRN Edema 03/27/22 04/29/23 History lidocaine 5 % topical patch 1 patch topical DAILY PRN pain 03/27/22 04/29/23 History potassium chloride 10 mEq 10 meq PO QPM PRN Edema 03/27/22 04/29/23 History capsule,extended release amlodipine 10 mg-benazepril 20 mg 1 cap PO QPM 04/16/23 04/29/23 History capsule (Lotrel) hydrocodone 5 mg-acetaminophen 325 1 tab PO QID PRN Pain 04/16/23 04/29/23 History mg tablet tiotropium bromide 18 mcg capsule 1 cap inhalation QAM 04/16/23 04/29/23 History with inhalation device (Spiriva with HandiHaler) loratadine 10 mg tablet (Claritin) 10 mg PO DAILY PRN Allergic 04/17/23 04/29/23 History Symptoms cholecalciferol (vitamin D3) 25 1,000 unit PO QPM 04/22/23 04/29/23 History mcg (1,000 unit) capsule prasugrel 10 mg tablet (Effient) 10 mg PO DAILY 04/29/23 04/29/23 History Patient History Medical History Bursitis of right hip hip injection Carotid artery disease s/p L carotid endarterectomy 1992; < 50% stenosis ICAs bilat Chronic back pain Chronic obstructive pulmonary disease mild - well controlled, stable per pt; last albuterol inhaler use daily Degenerative disc disease Dyslipidemia GERD (gastroesophageal reflux disease) rare, stable per pt History of Mohs micrographic surgery for skin cancer Hx of basal cell carcinoma R forehead s/p Mohs Hypertension controlled, stable per pt Kidney stones hx - no surgery Multiple thyroid nodules Peripheral neuropathy right foot Spinal stenosis Stroke at age 48, 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 no current paralysis. doing well. patient to be on Plavix daily, stopped beginning of March 2023 on her own d/t severe diarrhea. Surgical History History of carotid endarterectomy L, ~1992 (age 48) at [facility] [place] History of cataract surgery bilateral History of cholecystectomy History of dilatation and curettage History of tonsillectomy S/P lumbar fusion S/P JANEEN (total abdominal hysterectomy) Family History Mother Diabetes Arthritis Dementia Hypothyroidism Father Diabetes Stroke Brother Congestive heart failure Other No family history of adverse response to anesthesia Social History Smoking Status: Current every day smoker Cigarettes Per Day: 20; Second Hand Exposure: Yes; Do You Dip or Chew Tobacco: No; Tobacco Cessation Education Requested by Patient: No Hx Alcohol Use: No Hx Substance Use: No Preferred Language: [place]ican Communication Ability: Effective Review Scheduling Coordinator Required: No Beliefs That Will Affect Care: None Current Living Situation: Spouse Other Information That Helps Us Care for You: No Feels Safe at Home: Yes Safety Concerns: Feels Safe At This Time Assistive Devices: Denture - Upper, Denture - Lower and Glasses Review of Systems Review of Systems: All systems reviewed & are unremarkable except as noted in HPI & below Physical Exam Physical Exam: please see Dr. Rosenberg addendum for physical exam findings. Results & Data Vital Signs (Past 12 Hours) Vital Signs Temp Pulse Pulse Resp BP Pulse Ox O2 Del Method 04/29/23 14:45 88 12 109/57 L 94 Nasal Cannula 04/29/23 14:35 90 14 101/63 94 Nasal Cannula 04/29/23 14:25 97 H 12 111/59 L 97 Nasal Cannula 04/29/23 14:15 99 H 16 116/68 97 Nasal Cannula 04/29/23 14:05 100 H 18 126/70 97 Oxymask 04/29/23 13:55 93 H 20 121/71 97 Oxymask 04/29/23 13:45 95 H 14 128/64 99 Oxymask 04/29/23 13:37 36.4 C L 96 H 16 122/66 99 Oxymask 04/29/23 09:41 Room Air 04/29/23 09:41 36.7 C 95 H 20 156/74 H 92 Room Air O2 Flow Rate 04/29/23 14:45 2 04/29/23 14:35 2 04/29/23 14:25 2 04/29/23 14:15 2 04/29/23 14:05 4 04/29/23 13:55 4 04/29/23 13:45 6 04/29/23 13:37 6 04/29/23 09:41 04/29/23 09:41 Diagnostic Findings Lumbar Spine X-Ray 04/29/23 11:05 FL lumbar spine 2-3V CLINICAL HISTORY: L3-L4 DECOMPRESSION L3-L5 FUSION L4-L5 HW REMOVAL COMPARISON STUDY: Lumbar spine radiographs April 27, 2013. FLUOROSCOPY TIME: 10 seconds. Ka, r: 5.56 mGy FLUOROSCOPIC IMAGES: 2 FINDINGS: L4 and L5 pedicle screws were removed. Previous L4-L5 discectomy is noted. There is interval L3-L4 discectomy with interbody spacer placement. Posterior decompression is noted. Bilateral pedicle screws at the L3 and L4 levels are present. Hardware is intact. A linear radiodensity projecting posterior to the L3-L4 disc space is likely postsurgical. IMPRESSION: Fluoroscopy provided during hardware removal and interval L3-L4 discectomy, posterior decompression and bilateral pedicle screw fusion. ACT 112: Negative or not required by law. Electronically signed by: Carlos Sy M.D. 04/29/2023 3:12 PM Pre op CXR No acute cardiopulmonary disease Medications Administered Current Inpatient Medications Acetaminophen (Acetaminophen 500 Mg Tab) 1,000 mg PO PREOP GEM Stop: 04/29/23 18:00 Last Admin: 04/29/23 10:02 Dose: 1,000 mg Acetaminophen (Acetaminophen 500 Mg Tab) 1,000 mg PO Q8H PRN PRN Reason: MILD Pain Scale 1,2,3 & Pre PT Stop: 05/29/23 15:19 Hydrocodone Bitart/Acetaminophen (Hydrocodone/Acetamophen 5/325mg Tab) 1 - 2 tab PO Q4H PRN PRN Reason: Pain & Pre PT Stop: 05/13/23 15:19 Al Hydrox/Mg Hydrox/Simethicone (Aluminum/Magnesium Susp 30 Ml Udc) 30 ml PO Q6H PRN PRN Reason: Dyspepsia Stop: 05/29/23 15:19 Albuterol (Albuterol Hfa 8 Gm Inhaler) 2 puffs INH Q6H PRN PRN Reason: sob Stop: 05/29/23 15:19 Amlodipine Besylate (Amlodipine Besylate 5 Mg Tab) 10 mg PO QPM GEM Stop: 05/29/23 20:59 Atropine Sulfate (Atropine Sulfate 0.1 Mg/Ml 10ml Syr) 0.5 mg IV Q1M PRN PRN Reason: PACU Use-HR<40 &/or Bradycardi Stop: 04/29/23 17:13 Bisacodyl (Bisacodyl 10 Mg Supp) 10 mg [place] DAILY PRN PRN Reason: Constipation Stop: 05/29/23 15:19 Diphenhydramine HCl (Diphenhydramine Capsule 25 Mg Cap) 25 mg PO Q6H PRN PRN Reason: Allergic Rhinitis/Insomnia Stop: 05/29/23 15:19 Enalapril Maleate (Enalapril Maleate 10 Mg Tab) 20 mg PO QPM GEM Stop: 05/29/23 20:59 Ephedrine Sulfate (Ephedrine Sulfate 50 Mg/Ml Amp) 5 mg IV Q5M PRN PRN Reason: PACU Use Only-SBP<90 mmHg Stop: 04/29/23 17:13 Epinephrine HCl (Epinephrine Adult Auto-Inject 0.3 Mg Syr) 0.3 mg IM Q4H PRN PRN Reason: Allergic Reaction Stop: 05/29/23 15:19 Famotidine (Famotidine 20 Mg Tab) 20 mg PO QPM GEM Stop: 05/29/23 20:59 Famotidine (Famotidine 20 Mg Tab) 20 mg PO Q12H PRN PRN Reason: Dyspepsia Stop: 05/29/23 15:19 Fentanyl Citrate (Fentanyl Citrate Pf 100 Mcg/2 Ml Vial) 25 mcg IV Q5M PRN PRN Reason: PACU Use Only-Pain Stop: 04/29/23 17:13 Last Admin: 04/29/23 13:58 Dose: 25 mcg Gabapentin (Gabapentin 300 Mg Cap) 300 mg PO PREOP GEM Stop: 04/29/23 18:00 Last Admin: 04/29/23 10:11 Dose: Not Given Hydromorphone HCl (Hydromorphone Inj 1 Mg/Ml Syringe) 0.25 mg IV Q5M PRN PRN Reason: PACU Use Only-Pain Stop: 04/29/23 17:13 Last Admin: 04/29/23 14:31 Dose: 0.25 mg Hydromorphone HCl (Hydromorphone Inj 0.5 Mg/0.5 Ml Syr) 0.5 mg IV Q3H PRN PRN Reason: MODERATE Pain (Scale 4,5,6) & Pre PT Stop: 05/13/23 15:19 Hydromorphone HCl (Hydromorphone Inj 1 Mg/Ml Syringe) 1 mg IV Q3H PRN PRN Reason: SEVERE Pain (Scale 7,8,9,10) Stop: 05/13/23 15:19 Hydroxyzine HCl (Hydroxyzine Hcl 25 Mg Tab) 25 mg PO Q8H PRN PRN Reason: Anxiety Stop: 05/29/23 15:19 Lactated Ringer's (Lr) 1,000 mls @ 15 mls/hr IV .Q24H GEM Stop: 04/30/23 05:59 Last Admin: 04/29/23 10:11 Dose: Not Given Lactated Ringer's (Lr) 1,000 mls @ 60 mls/hr IV .[id number] GEM Stop: 04/29/23 22:39 Last Infusion: 04/29/23 12:03 Dose: Infused Clindamycin Phosphate (Cleocin/D5w) 900 mg in 50 mls @ 100 mls/hr IV PREOP GEM; Protocol Stop: 04/29/23 18:00 Last Admin: 04/29/23 11:57 Dose: 100 mls/hr Sodium Chloride (Nss 1000ml) 1,000 mls @ 100 mls/hr IV .Q10H GEM Stop: 05/29/23 15:19 Promethazine HCl 12.5 mg/ (Sodium Chloride) 50.5 mls @ 202 mls/hr IV Q6H PRN PRN Reason: Nausea &/or Vomiting Stop: 05/29/23 15:19 Acetaminophen (Ofirmev) 1,000 mg in 100 mls @ 400 mls/hr IV Q8H PRN PRN Reason: Pain Rating 1-3 & Pre PT Stop: 04/30/23 15:20 Clindamycin Phosphate (Cleocin/D5w) 600 mg in 50 mls @ 100 mls/hr IV Q8H GEM Stop: 04/30/23 04:14 Dexamethasone 6 mg/ Syringe 1.5 mls @ 1 mls/min IV DAILY GEM Stop: 05/02/23 09:02 Influenza Virus Vaccine Quadrival (Do Not Administer Flu Vaccine) 1 each N/A PRN PRN PRN Reason: Notification Stop: 05/29/23 15:19 Loratadine (Loratadine 10 Mg Tab) 10 mg PO DAILY PRN PRN Reason: Allergic Symptoms Stop: 05/29/23 15:19 Lorazepam (Lorazepam 0.5 Mg Tab) 0.5 mg PO Q8H PRN PRN Reason: Sedation/Anxiety Stop: 05/29/23 15:19 Lorazepam (Lorazepam 2 Mg/1 Ml Vial) 0.5 mg IV Q8H PRN PRN Reason: Sedation/Anxiety Stop: 05/29/23 15:19 Magnesium Hydroxide (Magnesium Hydroxide Susp 30 Ml Udc) 30 ml PO Q24H PRN PRN Reason: Constipation Stop: 05/29/23 15:19 Metoclopramide HCl (Metoclopramide Hcl Inj 5 Mg/Ml 2 Ml Vial) 10 mg IV Q6H PRN PRN Reason: Nausea &/or Vomiting Stop: 05/29/23 15:19 Naloxone HCl (Naloxone Hcl 0.4 Mg/1 Ml Vial/Carp) 0.1 mg IV Q5M PRN PRN Reason: Oversedation/Resp depression Stop: 05/29/23 15:19 Ondansetron HCl (Ondansetron Inj 2 Mg/Ml 2 Ml Vial) 4 mg IV ONCE PRN PRN Reason: PACU Use Only-Nausea/Vomiting Stop: 04/29/23 17:13 Ondansetron HCl (Ondansetron Inj 2 Mg/Ml 2 Ml Vial) 4 mg IV Q6H PRN PRN Reason: Nausea &/or Vomiting Stop: 05/29/23 15:19 Ondansetron HCl (Ondansetron 4 Mg Od Tab) 4 mg PO Q6H PRN PRN Reason: Nausea Stop: 05/29/23 15:19 Pneumococcal Polyvalent Vaccine (Do Not Administer Pneumococcal Vaccine) 1 each N/A PRN PRN PRN Reason: Notification Stop: 05/29/23 15:19 Polyethylene Glycol (Polyethylene (Miralax) 17 Gm Pack) 17 gm PO Q6 GEM Stop: 05/30/23 05:59 Potassium Chloride (Potassium Chloride 10 Meq Tabcr) 10 meq PO QPM PRN PRN Reason: Edema Stop: 05/29/23 15:19 Senna/Docusate Sodium (Docusate Sodium/Senna 50/8.6mg Tab) 2 tab PO HS GEM Stop: 05/29/23 20:59 Sodium Biphosphate/Sodium Phosphate (Sod Phosphate/Sod Biphosphate Enema 132 Ml Btl) 132 ml VT ONE PRN PRN Reason: Constipation Stop: 05/29/23 15:19 Tramadol HCl (Tramadol Hcl 50 Mg Tablet) 50 - 100 mg PO Q4H PRN PRN Reason: Moderate-Severe pain & Pre PT Stop: 05/29/23 15:19 Umeclidinium [place] (Umeclidinium [place] 62.5mcg/Blister 7 Puffs/Inhaler) 1 puffs INH QAM GEM Stop: 05/30/23 08:59 Vitamin D (Cholecalciferol 1,000 Units 25 Mcg Tab) 1,000 units PO QPM GEM Stop: 05/29/23 20:59 ECG Rate (beats per minute): 94 Rhythm: normal sinus
[2023-04-29] MEDS: HYDROCODONE/ACETAMOPHEN 5/325MG TAB PO PRN ×2 (16:25→23:43)
[2023-04-29] MEDS: LORATADINE 10 MG TAB PO PRN (16:47)
[2023-04-29] MEDS: FAMOTIDINE 20 MG TAB PO SCH (19:48)
[2023-04-29] MEDS: CHOLECALCIFEROL 1,000 UNITS 25 MCG TAB PO SCH (19:49)
[2023-04-29] MEDS: DOCUSATE SODIUM/SENNA 50/8.6MG TAB PO SCH (19:49)
[2023-04-29] MEDS: CLINDAMYCIN/D5W 600 MG/50 ML BAG IV SCH (19:51)
[2023-04-29] MEDS ORDERED: amLODIPine BESYLATE 5 MG TAB PO SCH (21:00)
[2023-04-29] MEDS ORDERED: ENALAPRIL MALEATE 10 MG TAB PO SCH (21:00)
[2023-04-30] MEDS: SODIUM CHLORIDE 0.9% 1000ML 1,000 ML IV SCH (01:23)
[2023-04-30] MEDS: CLINDAMYCIN/D5W 600 MG/50 ML BAG IV SCH (04:41)
[2023-04-30] MEDS: HYDROCODONE/ACETAMOPHEN 5/325MG TAB PO PRN ×3 (05:16→20:56)
[2023-04-30] MEDS: POLYETHYLENE (MIRALAX) 17 GM PACK PO SCH ×3 (05:18→17:45)
[2023-04-30 08:12] LABS: Basophils # (auto) 0.02 K/uL (0-0.2); Basophils % (auto) 0.2 %; Hematocrit (blood only) 39.7 % (37.0-47.0); Hemoglobin 13.4 g/dl (12.0-16.0); Immature Granulocytes # (auto) 0.04 K/uL (0.01-0.20); Immature Granulocytes % (auto) 0.3 %; Lymphocytes # (auto) 0.71 K/uL (1.2-3.4); Lymphocytes % (auto) 6.1 %; Mean Corpuscular Hemoglobin 30.7 pg (25.0-34.0); Mean Corpuscular Hgb Conc 33.8 g/dL (32.0-36.0); Mean Corpuscular Volume 91.1 fL (80.0-100.0); Mean Platelet Volume 10.4 fL (9.4-12.4); Monocytes # (auto) 0.87 K/uL (0.11-0.59); Monocytes % (auto) 7.5 %; Neutrophils # (auto) 9.91 K/uL (1.40-6.50); Neutrophils % (auto) 85.9 %; Platelet Count 238 K/uL (130-400); RDW Coefficient of Variation 13.5 % (11.5-14.5); RDW Standard Deviation 45.5 fL (36.4-46.3); Red Blood Count 4.36 M/uL (4.20-5.40); White Blood Count 11.55 K/ul (4.8-10.8)
[2023-04-30 08:28] LABS: BUN Creatinine Ratio 17.7 (10-20); Calcium 8.5 mg/dl (8.6-10.3); Creatinine Clr Calc Pharmacy 35.4 ml/min; Est GFR (African American) 66.6 ml/min; Est GFR (Non-African American) 57.4 ml/min; Potassium 3.9 mmol/L (3.5-5.1)
[2023-04-30] MEDS: UMECLIDINIUM BROMIDE 62.5MCG/BLISTER 7 PUFFS/INHALER INH SCH (08:29)
[2023-04-30] MEDS: dexAMETHasone 6 MG in SYRINGE 0 ML IV SCH (08:29)
--- NOTE | 2023-04-30 08:43 | Orthopedic Progress Note ---
Date of Service April 30, 2023 Assessment & Plan (1) Neurogenic claudication due to lumbar spinal stenosis: Plan: At this time initiate physical therapy monitor JELENA operatively discharge home in the next day or so. Admission and Anticipated Discharge Date Admission Date: April 29, 2023 Subjective Patient's back pain controlled leg pain markedly improved Physical Exam Physical Exam: Patient is in the chair at the bedside. Is good strength testing. Appears comfortable. Results & Data Vital Signs (Past 12 Hours) Vital Signs Temp Pulse Resp BP Pulse Ox O2 Del Method 04/30/23 08:09 36.8 C 82 18 114/68 92 Room Air 04/30/23 05:45 18 99 Nasal Cannula 04/30/23 03:03 36.7 C 90 18 138/76 96 Nasal Cannula
[2023-04-30] MEDS: LORATADINE 10 MG TAB PO PRN (11:19)
--- NOTE | 2023-04-30 16:49 | Hospitalist Progress Note ---
Date of Service April 30, 2023 Assessment & Plan (1) Neurogenic claudication due to lumbar spinal stenosis: (2) Hypertension: (3) Dyslipidemia: (4) Carotid artery disease: Plan This is a 78-year-old female who has a significant past medical history of CVA, HTN, HLD, carotid artery disease status post left carotid endarterectomy, reported anaphylaxis to aspirin, DDD and tobacco abuse who presents for elective lumbar procedure by Dr. Guzman. Neurogenic claudication due to lumbar spinal stenosis S/L L3-[address] Guzman, POD #0 EBL: 50ml pain/wound management per ortho activity and therapy as prescribed by ortho encourage incentive spirometry Remains stable and will continue with PT as advised by the primary Pain is controlled with a radiculopathy Will check CBC and PRP tomorrow HTN bp soft 109/57 so will hold amlodipine enalapril for now re evaluate in a.m. to resume BP is minimally elevated as 143/70 Hx of CVA not on ASA/Statin 2/2 to allergy/intolerance previously on plavix but stopped per cards note to start prasugrel post surgery once cleared by ortho HLD did not tolerate tx with statin, zetia or repatha due to myalgia DVT ppx: SCDS FULL CODE PCP: Eduin Likely discharge tomorrow and remains medically stable Admission and Anticipated Discharge Date Admission Date: April 29, 2023 Subjective 04/30/2023 The patient was seen and examined in medical floor She is a status post lumbar decompression and fusion Remains stable and denies any symptoms Has been getting PT and likely to be discharged tomorrow Review of Systems Review of Systems: All systems reviewed and are unremarkable except as noted below Physical Exam Physical Exam: Sitting at the edge of the bed without any acute distress Constitutional: well developed, well nourished and average body habitus; not ill appearing Eyes: PERRL, conjunctivae normal, anicteric sclerae ENMT: external ear and nose normal, oropharynx normal Neck: trachea midline, no thyromegaly Respiratory: no respiratory distress Auscultation: lungs clear to auscultation bilaterally Cardiovascular: Rate/Rhythm: regular rate and regular rhythm; not tachycardic Heart Sounds: normal S1 and normal S2; no murmur Extremities: no edema Gastrointestinal (Abdomen): Inspection/Auscultation: normal bowel sounds; abdomen not distended Percussion/Palpation: abdomen soft; abdomen nontender Musculoskeletal: Localized back tenderness without any other acute arthritis Neurologic: normal touch/pain/proprioception and moves all extremities; no focal motor deficits Psychiatric: A+Ox3, euthymic affect Lymphatic: no cervical or axillary lymphadenopathy Results & Data Results & Data Vital Signs (Past 12 Hours) Vital Signs Temp Pulse Resp BP Pulse Ox O2 Del Method 04/30/23 12:00 Room Air 04/30/23 16:06 36.9 C 94 H 18 143/70 H 98 Room Air 04/30/23 08:09 36.8 C 82 18 114/68 92 Room Air 04/30/23 05:45 18 99 Nasal Cannula Laboratory Results Short CBC 04/30/23 Range/Units 07:06 WBC 11.55 H (4.8-10.8) K/ul Hgb 13.4 (12.0-16.0) g/dl Hct 39.7 (37.0-47.0) % Plt Count 238 (130-400) K/uL BMP 04/30/23 07:06 Sodium 142 Potassium 3.9 Chloride 112 H Carbon Dioxide 23 BUN 17 Creatinine 0.96 Glucose 158 H Calcium 8.5 L Medications Administered Current Inpatient Medications Acetaminophen (Acetaminophen 500 Mg Tab) 1,000 mg PO Q8H PRN PRN Reason: MILD Pain Scale 1,2,3 & Pre PT Stop: 05/29/23 15:19 Hydrocodone Bitart/Acetaminophen (Hydrocodone/Acetamophen 5/325mg Tab) 1 - 2 tab PO Q4H PRN PRN Reason: Pain & Pre PT Stop: 05/13/23 15:19 Last Admin: 04/30/23 11:20 Dose: 1 tab Al Hydrox/Mg Hydrox/Simethicone (Aluminum/Magnesium Susp 30 Ml Udc) 30 ml PO Q6H PRN PRN Reason: Dyspepsia Stop: 05/29/23 15:19 Albuterol (Albuterol Hfa 8 Gm Inhaler) 2 puffs INH Q6H PRN PRN Reason: sob Stop: 05/29/23 15:19 Last Admin: 04/30/23 05:45 Dose: 2 puffs Amlodipine Besylate (Amlodipine Besylate 5 Mg Tab) 10 mg PO QPM GEM Stop: 05/29/23 20:59 Bisacodyl (Bisacodyl 10 Mg Supp) 10 mg [place] DAILY PRN PRN Reason: Constipation Stop: 05/29/23 15:19 Diphenhydramine HCl (Diphenhydramine Capsule 25 Mg Cap) 25 mg PO Q6H PRN PRN Reason: Allergic Rhinitis/Insomnia Stop: 05/29/23 15:19 Last Admin: 04/30/23 05:16 Dose: 25 mg Enalapril Maleate (Enalapril Maleate 10 Mg Tab) 20 mg PO QPM GEM Stop: 05/29/23 20:59 Epinephrine HCl (Epinephrine Inj 1 Mg/Ml Amp) 0.3 mg IM Q4H PRN PRN Reason: Allergic Reaction Stop: 05/29/23 15:40 Famotidine (Famotidine 20 Mg Tab) 20 mg PO QPM GEM Stop: 05/29/23 20:59 Last Admin: 04/29/23 19:48 Dose: 20 mg Famotidine (Famotidine 20 Mg Tab) 20 mg PO Q12H PRN PRN Reason: Dyspepsia Stop: 05/29/23 15:19 Hydromorphone HCl (Hydromorphone Inj 0.5 Mg/0.5 Ml Syr) 0.5 mg IV Q3H PRN PRN Reason: MODERATE Pain (Scale 4,5,6) & Pre PT Stop: 05/13/23 15:19 Hydromorphone HCl (Hydromorphone Inj 1 Mg/Ml Syringe) 1 mg IV Q3H PRN PRN Reason: SEVERE Pain (Scale 7,8,9,10) Stop: 05/13/23 15:19 Last Admin: 04/30/23 01:29 Dose: 1 mg Hydroxyzine HCl (Hydroxyzine Hcl 25 Mg Tab) 25 mg PO Q8H PRN PRN Reason: Anxiety Stop: 05/29/23 15:19 Promethazine HCl 12.5 mg/ (Sodium Chloride) 50.5 mls @ 202 mls/hr IV Q6H PRN PRN Reason: Nausea &/or Vomiting Stop: 05/29/23 15:19 Dexamethasone 6 mg/ Syringe 1.5 mls @ 1 mls/min IV DAILY GEM Stop: 05/02/23 09:02 Last Admin: 04/30/23 08:29 Dose: 1 mls/min Influenza Virus Vaccine Quadrival (Do Not Administer Flu Vaccine) 1 each N/A PRN PRN PRN Reason: Notification Stop: 05/29/23 15:19 Loratadine (Loratadine 10 Mg Tab) 10 mg PO DAILY PRN PRN Reason: Allergic Symptoms Stop: 05/29/23 15:19 Last Admin: 04/30/23 11:19 Dose: 10 mg Lorazepam (Lorazepam 0.5 Mg Tab) 0.5 mg PO Q8H PRN PRN Reason: Sedation/Anxiety Stop: 05/29/23 15:19 Lorazepam (Lorazepam 2 Mg/1 Ml Vial) 0.5 mg IV Q8H PRN PRN Reason: Sedation/Anxiety Stop: 05/29/23 15:19 Magnesium Hydroxide (Magnesium Hydroxide Susp 30 Ml Udc) 30 ml PO Q24H PRN PRN Reason: Constipation Stop: 05/29/23 15:19 Metoclopramide HCl (Metoclopramide Hcl Inj 5 Mg/Ml 2 Ml Vial) 10 mg IV Q6H PRN PRN Reason: Nausea &/or Vomiting Stop: 05/29/23 15:19 Naloxone HCl (Naloxone Hcl 0.4 Mg/1 Ml Vial/Carp) 0.1 mg IV Q5M PRN PRN Reason: Oversedation/Resp depression Stop: 05/29/23 15:19 Ondansetron HCl (Ondansetron Inj 2 Mg/Ml 2 Ml Vial) 4 mg IV Q6H PRN PRN Reason: Nausea &/or Vomiting Stop: 05/29/23 15:19 Ondansetron HCl (Ondansetron 4 Mg Od Tab) 4 mg PO Q6H PRN PRN Reason: Nausea Stop: 05/29/23 15:19 Pneumococcal Polyvalent Vaccine (Do Not Administer Pneumococcal Vaccine) 1 each N/A PRN PRN PRN Reason: Notification Stop: 05/29/23 15:19 Polyethylene Glycol (Polyethylene (Miralax) 17 Gm Pack) 17 gm PO Q6 GEM Stop: 05/30/23 05:59 Last Admin: 04/30/23 11:22 Dose: 17 gm Potassium Chloride (Potassium Chloride 10 Meq Tabcr) 10 meq PO QPM PRN PRN Reason: Edema Stop: 05/29/23 15:19 Senna/Docusate Sodium (Docusate Sodium/Senna 50/8.6mg Tab) 2 tab PO HS GEM Stop: 05/29/23 20:59 Last Admin: 04/29/23 19:49 Dose: 2 tab Sodium Biphosphate/Sodium Phosphate (Sod Phosphate/Sod Biphosphate Enema 132 Ml Btl) 132 ml [place] ONE PRN PRN Reason: Constipation Stop: 05/29/23 15:19 Tramadol HCl (Tramadol Hcl 50 Mg Tablet) 50 - 100 mg PO Q4H PRN PRN Reason: Moderate-Severe pain & Pre PT Stop: 05/29/23 15:19 Umeclidinium [place] (Umeclidinium [place] 62.5mcg/Blister 7 Puffs/Inhaler) 1 puffs INH QAM GEM Stop: 05/30/23 08:59 Last Admin: 04/30/23 08:29 Dose: 1 puffs Vitamin D (Cholecalciferol 1,000 Units 25 Mcg Tab) 1,000 units PO QPM GEM Stop: 05/29/23 20:59 Last Admin: 04/29/23 19:49 Dose: 1,000 units
[2023-04-30] MEDS: CHOLECALCIFEROL 1,000 UNITS 25 MCG TAB PO SCH (19:36)
[2023-04-30] MEDS: FAMOTIDINE 20 MG TAB PO SCH (19:36)
[2023-04-30] MEDS: DOCUSATE SODIUM/SENNA 50/8.6MG TAB PO SCH (19:36)
[2023-05-01] MEDS: POLYETHYLENE (MIRALAX) 17 GM PACK PO SCH ×2 (04:56→05:28)
[2023-05-01 06:29] LABS: Basophils # (auto) 0.04 K/uL (0-0.2); Basophils % (auto) 0.3 %; Eosinophils # (auto) 0.01 K/uL (0-0.50); Eosinophils % (auto) 0.1 %; Hematocrit (blood only) 41.4 % (37.0-47.0); Hemoglobin 13.9 g/dl (12.0-16.0); Immature Granulocytes # (auto) 0.07 K/uL (0.01-0.20); Immature Granulocytes % (auto) 0.6 %; Lymphocytes # (auto) 1.82 K/uL (1.2-3.4); Lymphocytes % (auto) 15.9 %; Mean Corpuscular Hemoglobin 30.3 pg (25.0-34.0); Mean Corpuscular Hgb Conc 33.6 g/dL (32.0-36.0); Mean Corpuscular Volume 90.4 fL (80.0-100.0); Mean Platelet Volume 10.5 fL (9.4-12.4); Monocytes % (auto) 7.8 %; Neutrophils # (auto) 8.64 K/uL (1.40-6.50); Neutrophils % (auto) 75.3 %; Platelet Count 286 K/uL (130-400); RDW Standard Deviation 46.5 fL (36.4-46.3); Red Blood Count 4.58 M/uL (4.20-5.40); White Blood Count 11.48 K/ul (4.8-10.8)
[2023-05-01 06:33] LABS: BUN Creatinine Ratio 24.5 (10-20); Creatinine Clr Calc Pharmacy 32.1 ml/min; Est GFR (African American) 59.1 ml/min; Potassium 4.2 mmol/L (3.5-5.1)
[2023-05-01] MEDS: HYDROCODONE/ACETAMOPHEN 5/325MG TAB PO PRN (08:43)
[2023-05-01] MEDS: dexAMETHasone 6 MG in SYRINGE 0 ML IV SCH (08:44)
[2023-05-01] MEDS: UMECLIDINIUM BROMIDE 62.5MCG/BLISTER 7 PUFFS/INHALER INH SCH (08:45)
[2023-05-01] MEDS: LORATADINE 10 MG TAB PO PRN (09:13)
--- NOTE | 2023-05-01 10:49 | Discharge Summary ---
Date of Service May 01, 2023 Admission HPI Per Admitting Provider This is a 78-year-old female who presents with chronic persistent back and leg pain after failing course of nonoperative care she is here for surgical intervention. Principal Diagnosis Lumbar spinal stenosis with neurogenic claudication Discharge Data Allergies Allergy/AdvReac Type Severity Reaction Status Date / Time aspirin Allergy Severe Anaphylaxis Verified 04/29/23 09:29 cephalexin Allergy Severe HIVES AND Verified 04/29/23 09:29 ITCHING, TONGUE SWELLING, SOB hydrocodone Allergy Intermediate itching Verified 04/29/23 09:29 prednisolone Allergy Unknown LIP Verified 04/29/23 09:29 SWELLING gabapentin AdvReac Intermediate Diarrhea Verified 04/29/23 10:15 amoxicillin AdvReac Unknown DIARRHEA Verified 04/29/23 09:29 oxycodone AdvReac Intermediate hallucinati Uncoded 04/29/23 09:29 ons Consultations 04/29/23 15:20 Consult Hospitalist Routine Procedures Performed Operation Date: 04/29/23 11:05 Actual Procedures p L3-L4 Decompression, L3-L5 Fusion, L4-L5 Hardware Removal, Spinal Cord Monitoring(Not Applicable) - Schuyler Guzman DO Ordered Studies 04/29/23 11:05 FL lumbar spine 2-3V Routine Hospital Course (1) Neurogenic claudication due to lumbar spinal stenosis: Patient went lumbar decompression fusion tolerated was elevated the orthopedic for postop labor postop and when she was up and ambulating progress postop day #2. JELENA drain decreased probably. Excellent strength testing. Separately discharged home. Discharge orders and instructions found in chart for further review. Total Time Total Time Spent Total Time Spent (In Minutes): 20 minutes Discharge Plan Discharge Items Patient Disposition: Home - Self-Care Reason For Visit: Spinal Stenosis, Lumbar Region with Neurogenic Cla Discharge Diagnosis: Lumbar spinal stenosis with neurogenic claudication Activity: As commented below Non-emergency contact: Primary Care Provider Call non-emergency contact if: you have any medication questions Follow-up/Referrals: Jag Denny [Primary Care Provider] - Diet: Regular Addtl Attending Provider Instructions: ACTIVITY RECOMMENDATIONS: SELF CARE INSTRUCTIONS AFTER THORACIC/LUMBAR FUSIONS 1. You may walk to your tolerance. It is good exercise for your legs and back. Expect some back and intermittent leg aches and pains. 2. You may perform "counter-top" level activities (make a sandwich, maggie with a project, etc.). 3. No bending or lifting of more than 10 pounds or back twisting of any nature (roll like a log when turning in bed). 4. You may ride in a car for 20-30 minutes at a time. No driving until after your first visit with your doctor. 5. Frequent changes of position and restricting sitting to 30 minutes at a time will help limit the amount of back spasms and stiffness you may experience. 6. You may discontinue the use of ambulatory aids (cane, crutches, etc.) once your strength and confidence allow. 7. You may standard machine stitcher the shower and let water strike your incision when you arrive home at least once daily. Do not take a tub bath, sit in a hot tub or go into a swimming pool until after your first recheck in the office. SPECIAL CARE INSTRUCTIONS: VERY IMPORTANT TO READ AND REVIEW A. Your surgical incision has been closed with a cosmetic suture under the skin that will dissolve in about 6 weeks. In 14 days, you can use a pair of clean scissors and cut the suture that is left outside of the skin at the ends of your incision. 1. The small skin tapes can be removed 7 days after surgery if they have not fallen off by that point. 2. You may keep the wound open to air as much as possible to promote healing after post-op day number 5 unless told otherwise by your doctor. 3. If you think the wound looks like it is becoming infected (redness or worsening drainage) and/or you are experiencing fever, chill or worsening back pain and muscle spasms, contact the office so that we may evaluate you as soon as possible. B. Complications are uncommon, but please contact us if you have any signs or symptoms of: 1. wound infection (fever higher than 102.5 degrees F, redness, separation of wound, drainage, or increasing pain from the incision) 2. blood clots in legs (pain, swelling, redness and warmth in legs) 3. urinary tract infection (fever higher than 102.5 degrees F, burning upon urination or increased frequency of urination) 4. nerve problems (inability to walk on your toes or heels, numbness, loss of bowel or bladder control) 5. any other symptoms that concern you C. Please call the office at if you have any concerns or questions about your operation or recovery. D. No smoking! Smoking drastically decreases the chance of a solid fusion. E. Do not take any anti-inflammatory medications (Indocin, Advil, Motrin, Aspirin, Naprosyn, etc.) as these may inhibit the chance of a solid fusion. Tylenol is okay to take for pain. MANAGING PAIN AFTER SPINAL SURGERY 1. Narcotic medication is intended for short-term use and will be provided for surgical pain. Surgical pain usually lasts for a period of 4-6 weeks. Narcotic medication includes Percocet, Vicodin, Darvocet, Tylenol #3 or Lortab. 2. Longer-term pain is more appropriately treated with non-narcotic medication such as Tylenol ES. 3. Muscle spasm is not appropriately treated with narcotics. Muscle relaxers such as Soma, Flexeril or Skelaxin can be used along with Tylenol ES. 4. Remember that we all live with some "aches and pains". This is not unusual or uncommon after an injury or as we get older. a. Back pain is expected and may include muscle spasms for 4 to 6 weeks after surgery. The pain should gradually improve. If the pain worsens for no apparent reason, please contact the office. b. Intermittent leg pain may also be experienced and should not be concerned about unless it worsens for no apparent reason. If so, please contact the office. 5. We will provide appropriate medication within the normal guidelines of their prescribed use. We will also be very cautious and aware of potential abuse and extended duration of patients' medication needs. a. Pain medications are for your comfort and to assist with sleep and rest so that the tissue can heal. They are not provided in order to return to normal activity and should not be used through the day. To do so or worsening pain at night can result from ongoing tissue damage and development of tolerance to the prescribed medicine. 6. Please allow 2-3 days to process refills. Prescriptions will not be mailed but must be picked up at the office. FOLLOW UP VISIT: Keep your scheduled follow-up appointment. Any questions, please call the office at . Pending Studies at Discharge: No Stand-Alone Forms: [employer], Smoking Cessation Medications and DC Order Prescriptions: New hydrocodone-acetaminophen 5-325 mg tablet 1 tab PO Q6H PRN (Reason: pain) Qty: 30 0RF Continued celecoxib [Celebrex] 200 mg capsule 200 mg PO QPM albuterol sulfate 90 mcg/actuation HFA aerosol inhaler 2 puff inhalation Q6H PRN (Reason: sob) famotidine 20 mg tablet 20 mg PO QPM epinephrine 0.3 mg/0.3 mL auto-injector 0.3 mg IM Q4H PRN (Reason: Allergic Reaction) cholecalciferol (vitamin D3) 25 mcg (1,000 unit) capsule 1,000 unit PO QPM potassium chloride 10 mEq capsule, extended release 10 meq PO QPM PRN (Reason: Edema) lidocaine 5 % adhesive patch,medicated 1 patch topical DAILY PRN (Reason: pain) Rx Instructions: leave on most painful area for up to 12 hrs furosemide 20 mg tablet 20 mg PO DAILY PRN (Reason: Edema) hydrocodone-acetaminophen 5-325 mg Tablet 1 tab PO QID PRN (Reason: Pain) amlodipine-benazepril [Lotrel] 10-20 mg Capsule 1 cap PO QPM Spiriva with HandiHaler 18 mcg Capsule, W/Inhalation Device 1 cap INHALATION QAM Rx Instructions: puncture 1 cap using device; one dose = 2 inhalations loratadine [Claritin] 10 mg Tablet 10 mg PO DAILY PRN (Reason: Allergic Symptoms) Rx Instructions: 30 minutes prior to Vicodin (hydrocodone-acetaminophen) dose per pt prasugrel [Effient] 10 mg tablet 10 mg PO DAILY Rx Instructions: suppose to begin after surgery Discharge Orders: Discharge Order (Routine); Ordered 05/01/23 Ordered By: Schuyler Guzman Admission Data Admit Date/Time: 04/29/23 13:45 Attending Provider: Schuyler Guzman Admit Provider: Schuyler Guzman Primary Care Provider: Jag Denny Other Providers: Ana Franco ; Bassam May
--- NOTE | 2023-05-01 11:47 | Hospitalist Progress Note ---
Date of Service May 01, 2023 Assessment & Plan (1) Neurogenic claudication due to lumbar spinal stenosis: (2) Hypertension: (3) Dyslipidemia: (4) Carotid artery disease: Plan This is a 78-year-old female who has a significant past medical history of CVA, HTN, HLD, carotid artery disease status post left carotid endarterectomy, reported anaphylaxis to aspirin, DDD and tobacco abuse who presents for elective lumbar procedure by Dr. Guzman. Neurogenic claudication due to lumbar spinal stenosis S/L L3-[address] Guzman, POD #1 EBL: 50ml pain/wound management per ortho activity and therapy as prescribed by ortho encourage incentive spirometry Remains stable and will continue with PT as advised by the primary Pain is controlled with a radiculopathy Will check CBC and PRP tomorrow-blood counts remained stable Medically stable with minimal back pain HTN bp soft 109/57 so will hold amlodipine enalapril for now re evaluate in a.m. to resume BP is minimally elevated as 143/70 Remains on the upper side otherwise stable Hx of CVA not on ASA/Statin 2/2 to allergy/intolerance previously on plavix but stopped per cards note to start prasugrel post surgery once cleared by ortho HLD did not tolerate tx with statin, zetia or repatha due to myalgia DVT ppx: SCDS FULL CODE PCP: Eduin Likely discharge tomorrow and remains medically stable Admission and Anticipated Discharge Date Admission Date: April 29, 2023 Subjective 04/30/2023 The patient was seen and examined in medical floor She is a status post lumbar decompression and fusion Remains stable and denies any symptoms Has been getting PT and likely to be discharged tomorrow 05/01/2023 The patient was seen and examined in medical floor She has been stable with minimal back pain without any radiation She is up and about Will be discharged home this afternoon from the primary service Review of Systems Review of Systems: All systems reviewed and are unremarkable except as noted below Physical Exam Physical Exam: Sitting at the edge of the bed without any acute distress Constitutional: well developed, well nourished and average body habitus; not ill appearing Eyes: PERRL, conjunctivae normal, anicteric sclerae ENMT: external ear and nose normal, oropharynx normal Neck: trachea midline, no thyromegaly Respiratory: no respiratory distress Auscultation: lungs clear to auscultation bilaterally Cardiovascular: Rate/Rhythm: regular rate and regular rhythm; not tachycardic Heart Sounds: normal S1 and normal S2; no murmur Extremities: no edema Gastrointestinal (Abdomen): Inspection/Auscultation: normal bowel sounds; abdomen not distended Percussion/Palpation: abdomen soft; abdomen nontender Musculoskeletal: Minimal back tenderness and pain with movement. No other acute arthritis Neurologic: normal touch/pain/proprioception and moves all extremities; no focal motor deficits Psychiatric: A+Ox3, euthymic affect Lymphatic: no cervical or axillary lymphadenopathy Results & Data Results & Data Vital Signs (Past 12 Hours) Vital Signs Temp Pulse Resp BP Pulse Ox O2 Del Method 05/01/23 07:32 37 C 98 H 16 143/78 H 93 Room Air Laboratory Results Short CBC 05/01/23 Range/Units 05:41 WBC 11.48 H (4.8-10.8) K/ul Hgb 13.9 (12.0-16.0) g/dl Hct 41.4 (37.0-47.0) % Plt Count 286 (130-400) K/uL BMP 05/01/23 05:41 Sodium 143 Potassium 4.2 Chloride 111 H Carbon Dioxide 24 BUN 26 H Creatinine 1.06 Glucose 126 H Calcium 9.0 Medications Administered Current Inpatient Medications Acetaminophen (Acetaminophen 500 Mg Tab) 1,000 mg PO Q8H PRN PRN Reason: MILD Pain Scale 1,2,3 & Pre PT Stop: 05/29/23 15:19 Hydrocodone Bitart/Acetaminophen (Hydrocodone/Acetamophen 5/325mg Tab) 1 - 2 tab PO Q4H PRN PRN Reason: Pain & Pre PT Stop: 05/13/23 15:19 Last Admin: 05/01/23 08:43 Dose: 1 tab Al Hydrox/Mg Hydrox/Simethicone (Aluminum/Magnesium Susp 30 Ml Udc) 30 ml PO Q6H PRN PRN Reason: Dyspepsia Stop: 05/29/23 15:19 Albuterol (Albuterol Hfa 8 Gm Inhaler) 2 puffs INH Q6H PRN PRN Reason: sob Stop: 05/29/23 15:19 Last Admin: 04/30/23 05:45 Dose: 2 puffs Amlodipine Besylate (Amlodipine Besylate 5 Mg Tab) 10 mg PO QPM GEM Stop: 05/29/23 20:59 Bisacodyl (Bisacodyl 10 Mg Supp) 10 mg MD DAILY PRN PRN Reason: Constipation Stop: 05/29/23 15:19 Diphenhydramine HCl (Diphenhydramine Capsule 25 Mg Cap) 25 mg PO Q6H PRN PRN Reason: Allergic Rhinitis/Insomnia Stop: 05/29/23 15:19 Last Admin: 04/30/23 05:16 Dose: 25 mg Enalapril Maleate (Enalapril Maleate 10 Mg Tab) 20 mg PO QPM FOR[facility], [facility] Stop: 05/29/23 20:59 Epinephrine HCl (Epinephrine Inj 1 Mg/Ml Amp) 0.3 mg IM Q4H PRN PRN Reason: Allergic Reaction Stop: 05/29/23 15:40 Famotidine (Famotidine 20 Mg Tab) 20 mg PO QPM GEM Stop: 05/29/23 20:59 Last Admin: 04/30/23 19:36 Dose: 20 mg Famotidine (Famotidine 20 Mg Tab) 20 mg PO Q12H PRN PRN Reason: Dyspepsia Stop: 05/29/23 15:19 Hydromorphone HCl (Hydromorphone Inj 0.5 Mg/0.5 Ml Syr) 0.5 mg IV Q3H PRN PRN Reason: MODERATE Pain (Scale 4,5,6) & Pre PT Stop: 05/13/23 15:19 Hydromorphone HCl (Hydromorphone Inj 1 Mg/Ml Syringe) 1 mg IV Q3H PRN PRN Reason: SEVERE Pain (Scale 7,8,9,10) Stop: 05/13/23 15:19 Last Admin: 04/30/23 01:29 Dose: 1 mg Hydroxyzine HCl (Hydroxyzine Hcl 25 Mg Tab) 25 mg PO Q8H PRN PRN Reason: Anxiety Stop: 05/29/23 15:19 Promethazine HCl 12.5 mg/ (Sodium Chloride) 50.5 mls @ 202 mls/hr IV Q6H PRN PRN Reason: Nausea &/or Vomiting Stop: 05/29/23 15:19 Dexamethasone 6 mg/ Syringe 1.5 mls @ 1 mls/min IV DAILY GEM Stop: 05/02/23 09:02 Last Admin: 05/01/23 08:44 Dose: 1 mls/min Influenza Virus Vaccine Quadrival (Do Not Administer Flu Vaccine) 1 each N/A PRN PRN PRN Reason: Notification Stop: 05/29/23 15:19 Loratadine (Loratadine 10 Mg Tab) 10 mg PO DAILY PRN PRN Reason: Allergic Symptoms Stop: 05/29/23 15:19 Last Admin: 05/01/23 09:13 Dose: 10 mg Lorazepam (Lorazepam 0.5 Mg Tab) 0.5 mg PO Q8H PRN PRN Reason: Sedation/Anxiety Stop: 05/29/23 15:19 Lorazepam (Lorazepam 2 Mg/1 Ml Vial) 0.5 mg IV Q8H PRN PRN Reason: Sedation/Anxiety Stop: 05/29/23 15:19 Magnesium Hydroxide (Magnesium Hydroxide Susp 30 Ml Udc) 30 ml PO Q24H PRN PRN Reason: Constipation Stop: 05/29/23 15:19 Metoclopramide HCl (Metoclopramide Hcl Inj 5 Mg/Ml 2 Ml Vial) 10 mg IV Q6H PRN PRN Reason: Nausea &/or Vomiting Stop: 05/29/23 15:19 Naloxone HCl (Naloxone Hcl 0.4 Mg/1 Ml Vial/Carp) 0.1 mg IV Q5M PRN PRN Reason: Oversedation/Resp depression Stop: 05/29/23 15:19 Ondansetron HCl (Ondansetron Inj 2 Mg/Ml 2 Ml Vial) 4 mg IV Q6H PRN PRN Reason: Nausea &/or Vomiting Stop: 05/29/23 15:19 Ondansetron HCl (Ondansetron 4 Mg Od Tab) 4 mg PO Q6H PRN PRN Reason: Nausea Stop: 05/29/23 15:19 Pneumococcal Polyvalent Vaccine (Do Not Administer Pneumococcal Vaccine) 1 each N/A PRN PRN PRN Reason: Notification Stop: 05/29/23 15:19 Potassium Chloride (Potassium Chloride 10 Meq Tabcr) 10 meq PO QPM PRN PRN Reason: Edema Stop: 05/29/23 15:19 Senna/Docusate Sodium (Docusate Sodium/Senna 50/8.6mg Tab) 2 tab PO HS GEM Stop: 05/29/23 20:59 Last Admin: 04/30/23 19:36 Dose: 2 tab Sodium Biphosphate/Sodium Phosphate (Sod Phosphate/Sod Biphosphate Enema 132 Ml Btl) 132 ml MD ONE PRN PRN Reason: Constipation Stop: 05/29/23 15:19 Tramadol HCl (Tramadol Hcl 50 Mg Tablet) 50 - 100 mg PO Q4H PRN PRN Reason: Moderate-Severe pain & Pre PT Stop: 05/29/23 15:19 Umeclidinium [place] (Umeclidinium [place] 62.5mcg/Blister 7 Puffs/Inhaler) 1 puffs INH QAM [facility], [facility]–1983 Stop: 05/30/23 08:59 Last Admin: 05/01/23 08:45 Dose: 1 puffs Vitamin D (Cholecalciferol 1,000 Units 25 Mcg Tab) 1,000 units PO QPM [facility], [facility] Stop: 05/29/23 20:59 Last Admin: 04/30/23 19:36 Dose: 1,000 units
== END 2023-05-01 13:57 | disposition home or self-care (01) | DRG 455 ==
LOC: ASU 09:02 → 3N 13:45